=== PATIENT | female | born 1995 | race Caucasian/White ===

== ENCOUNTER 2016-05-11 10:35 | Emergency (ER) | payer BC, OTHER ==
[~2016-05-11] VITALS: Ht 157.5 cm; Wt 40.9 kg
[~2016-05-11 10:35] MED LIST: BACTRIM DS 8001 TAB PO; BENTYL 20MG20 MG/TAB PO; CEFTIN500 MG PO; CIPRO 500MG TA500 MG PO; DEPO-PROVER150 MG/M1 IM; EFFEXOR XR37.5 MG/CA PO; KLONOPIN 0.5MG0.5 MG PO; LEXAPRO 10MG10 MG PO; LORTAB 5/500 501 TAB PO; NORCO 325 MG-51 TAB PO; PREDNISONE20 MG PO; PYRIDIUM200 M1 PO; TUSS PO; ULTRAM 50MG TAB50 MG PO; VENTOLIN0.09 MG IH; ZOFRAN 4MG T4 MG/TAB PO; ZOFRAN ODT4 MG PO; ZOVIRAX 200MG200 MG PO
[2016-05-11 10:40] VITALS: TEMP 98.9
[2016-05-11] MEDS ORDERED: PAMELOR 25MG25 MG PO (11:06)
[2016-05-11 11:55] LABS: BASO % 0.6 % (0.0-2.0); EOS # 0.1 (0.0-0.7); EOS % 1.3 % (0-4.0); GRAN % 61.6 % (42.2-75.2); HEMATOCRIT 39.9 % (37.0-47.0); HEMOGLOBIN 13.7 g/dl (12.5-16.0); LYMPH % 31.1 % (20.0-51.0); MEAN CELL VOLUME 85 fl (80.0-100.0); MEAN CORPUSCULAR HEMOGLOBIN 29 pg (27.0-31.0); MEAN CORPUSCULAR HGB CONC 34 g/dl (33.0-37.0); MEAN PLATELET VOLUME 8.9 fl (7.4-10.4); MONO # 0.3 (0.1-0.6); MONO % 5.2 % (1.7-9.3); PLATELET COUNT 293 K/mm3 (130-400); REDCELL DISTRIBUTION WIDTH-CV 12.4 % (11.5-14.5); WHITE BLOOD COUNT 6.4 K/mm3 (4.8-10.8)
[2016-05-11 12:05] LABS: ADJUSTED CALCIUM 9.1 mg/dL (8.4-10.2); ALBUMIN 4.8 gm/dL (3.5-5.0); BILIRUBIN,TOTAL 1.7 mg/dL (0.0-1.0); CALCIUM 9.7 mg/dL (8.4-10.2); CREATININE, serum 0.92 mg/dL (0.52-1.25); POTASSIUM 3.4 mmol/L (3.4-5.0); TOTAL PROTEIN 8.5 gm/dL (6.4-8.2)
[2016-05-11 12:14] LABS: PH 6 (5-8); URINE APPEARANCE Cloudy; URINE BACTERIA Rare /hpf; URINE BILIRUBIN Negative (NEGATIVE); URINE BLOOD Negative (NEGATIVE); URINE COLOR Yellow; URINE GLUCOSE Negative (NEGATIVE); URINE KETONE 1+ (NEGATIVE); URINE RBC 0-2 /hpf; URINE UROBILINOGEN Negative (NEGATIVE)
[2016-05-11 14:49] VITALS: BP 115/65; PULSE 105
== END 2016-05-11 14:50 | disposition home or self-care (01) ==
LOC: COL.ER 10:35
PROVIDERS: Family Medicine
DX: E86.9 Volume depletion, unspecified (principal); K52.9 Noninfective gastroenteritis and colitis, unspecified
CPT/HCPCS: J2405; J2550; J7030

== ENCOUNTER → 2016-06-03 | Outpatient (CLI) | payer BC, OTHER ==
[~2016-06-03] MED LIST changes: +DESYREL 50MG50 MG PO; +NEURONTIN300 MG/CAP PO; +PAMELOR 25MG25 MG PO; +PERIACTIN 4MG TA4 MG PO; +SEROQUEL 2525 MG/TAB PO; +SEROQUEL XR150 MG PO
== END ==
LOC: BHSO 13:55
DX: F41.1 Generalized anxiety disorder (principal)

== ENCOUNTER 2016-07-04 02:15 | Emergency (ER) | payer BC, OTHER ==
[~2016-07-04] VITALS: Ht 157.5 cm; Wt 44.5 kg
[~2016-07-04 02:15] MED LIST changes: -DESYREL 50MG50 MG PO; -NEURONTIN300 MG/CAP PO; -PERIACTIN 4MG TA4 MG PO; -SEROQUEL 2525 MG/TAB PO; -SEROQUEL XR150 MG PO
[2016-07-04 02:20] VITALS: TEMP 97.8
[2016-07-04] MEDS ORDERED: NORCO 325 MG-51 TAB PO (02:55)
[2016-07-04 03:01] VITALS: BP 128/80; PULSE 88
== END 2016-07-04 03:13 | disposition home or self-care (01) ==
LOC: COL.ER 02:15
DX: T65.891A Toxic effect of other specified substances, accidental (unintentional), initial encounter (principal); T23.562A Corrosion of first degree of back of left hand, initial encounter; Y93.E9 Activity, other interior property and clothing maintenance; Y92.009 Unspecified place in unspecified non-institutional (private) residence as the place of occurrence of the external cause

== ENCOUNTER → 2016-07-08 | Outpatient (CLI) | payer BC, OTHER ==
[~2016-07-08] MED LIST changes: +DESYREL 50MG50 MG PO; +NEURONTIN300 MG/CAP PO; +PERIACTIN 4MG TA4 MG PO; +SEROQUEL 2525 MG/TAB PO; +SEROQUEL XR150 MG PO
== END ==
LOC: BHSO 10:06
DX: F41.1 Generalized anxiety disorder (principal)

== ENCOUNTER → 2016-07-09 | Outpatient (CLI) | payer BC, OTHER | LOC: BHSO 10:51 | DX: F41.0 Panic disorder [episodic paroxysmal anxiety] (principal) ==

== ENCOUNTER 2016-11-23 11:14 | Emergency (ER) | payer BC, OTHER ==
[~2016-11-23] VITALS: Ht 157.5 cm; Wt 51.7 kg
[~2016-11-23 11:14] MED LIST changes: -DESYREL 50MG50 MG PO; -NEURONTIN300 MG/CAP PO; -PERIACTIN 4MG TA4 MG PO; -SEROQUEL 2525 MG/TAB PO; -SEROQUEL XR150 MG PO
[2016-11-23 11:20] VITALS: BP 120/89; PULSE 119; TEMP 98.5
[2016-11-23] MEDS ORDERED: DESYREL 50MG50 MG PO (11:29)
[2016-11-23] MEDS ORDERED: SEROQUEL 2525 MG/TAB PO (11:29)
[2016-11-23] MEDS ORDERED: SEROQUEL XR150 MG PO (11:29)
[2016-11-23] MEDS ORDERED: PERIACTIN 4MG TA4 MG PO (11:30)
[2016-11-23] MEDS ORDERED: NEURONTIN300 MG/CAP PO (11:30)
[2016-11-23 13:06] LABS: PH 5 (5-8); SQUAMOUS EPITHELIAL 20-50 /hpf; URINE APPEARANCE Cloudy; URINE BACTERIA Rare /hpf; URINE BILIRUBIN Negative (NEGATIVE); URINE BLOOD Negative (NEGATIVE); URINE COLOR Yellow; URINE GLUCOSE Negative (NEGATIVE); URINE KETONE Negative (NEGATIVE); URINE RBC 0-2 /hpf; URINE UROBILINOGEN Negative (NEGATIVE)
== END 2016-11-23 13:37 | disposition home or self-care (01) ==
LOC: COL.ER 11:14
PROVIDERS: Nurse Practitioner
DX: R07.9 Chest pain, unspecified (principal); R11.2 Nausea with vomiting, unspecified; R10.814 Left lower quadrant abdominal tenderness; F31.9 Bipolar disorder, unspecified; F17.210 Nicotine dependence, cigarettes, uncomplicated

== ENCOUNTER 2017-06-22 10:28 | Emergency (ER) | payer BC ==
[~2017-06-22] VITALS: Ht 157.5 cm; Wt 50.9 kg
[~2017-06-22 10:28] MED LIST changes: +DESYREL 50MG50 MG PO; +NEURONTIN300 MG/CAP PO; +PERIACTIN 4MG TA4 MG PO; +SEROQUEL 2525 MG/TAB PO; +SEROQUEL XR150 MG PO
[2017-06-22 10:40] VITALS: TEMP 98.7
[2017-06-22 11:29] LABS: BASO # 0.1 (0.0-0.2); BASO % 0.4 % (0.0-2.0); EOS # 0.1 (0.0-0.7); EOS % 0.7 % (0-4.0); GRAN # 10.2 (1.4-6.5); GRAN % 81.2 % (42.2-75.2); HEMATOCRIT 39.2 % (37.0-47.0); HEMOGLOBIN 13.9 g/dl (12.5-16.0); LYMPH # 1.7 (1.2-3.4); LYMPH % 13.5 % (20.0-51.0); MEAN CELL VOLUME 83 fl (80.0-100.0); MEAN CORPUSCULAR HEMOGLOBIN 30 pg (27.0-31.0); MEAN CORPUSCULAR HGB CONC 36 g/dl (33.0-37.0); MEAN PLATELET VOLUME 9.2 fl (7.4-10.4); MONO # 0.5 (0.1-0.6); MONO % 3.8 % (1.7-9.3); PLATELET COUNT 315 K/mm3 (130-400); REDCELL DISTRIBUTION WIDTH-CV 12.4 % (11.5-14.5)
[2017-06-22 11:36] LABS: ALBUMIN 4.6 gm/dL (3.5-5.0); BILIRUBIN,TOTAL 0.8 mg/dL (0.0-1.0); CALCIUM 10.1 mg/dL (8.4-10.2); CREATININE, serum 0.63 mg/dL (0.52-1.25); POTASSIUM 3.8 mmol/L (3.4-5.0); TOTAL PROTEIN 7.9 gm/dL (6.4-8.2)
[2017-06-22 11:49] LABS: COLLECTION METHOD CLEAN CATCH
[2017-06-22 12:07] LABS: MUCOUS Present /lpf; PH 5 (5-8); URINE APPEARANCE Cloudy; URINE BACTERIA None Seen /hpf; URINE BILIRUBIN Negative (NEGATIVE); URINE BLOOD Negative (NEGATIVE); URINE COLOR Yellow; URINE GLUCOSE Negative (NEGATIVE); URINE KETONE 2+ (NEGATIVE); URINE LEUKOCYTE ESTERASE Negative (NEGATIVE); URINE NITRATE Negative (NEGATIVE); URINE PROTEIN(semi-quant) 1+ (NEGATIVE); URINE UROBILINOGEN Negative (NEGATIVE)
[2017-06-22] MEDS ORDERED: PHENERGAN 25 TA25 MG PO (13:22)
[2017-06-22 13:43] VITALS: BP 109/77; PULSE 76
[2017-06-22] MEDS ORDERED: MACROBID 1100 MG/CAP PO (14:08)
== END 2017-06-22 13:43 | disposition home or self-care (01) ==
LOC: COL.ER 10:28
PROVIDERS: Emergency Medicine
DX: O23.41 Unspecified infection of urinary tract in pregnancy, first trimester (principal); O21.9 Vomiting of pregnancy, unspecified; O99.341 Other mental disorders complicating pregnancy, first trimester; Z3A.08 8 weeks gestation of pregnancy; Z87.891 Personal history of nicotine dependence; Z88.8 Allergy status to other drugs, medicaments and biological substances; Z98.890 Other specified postprocedural states
CPT/HCPCS: J2550; J7030

== ENCOUNTER 2017-07-08 14:06 | Outpatient (CLI) | payer BC ==
[~2017-07-08] VITALS: Ht 157.5 cm; Wt 48.5 kg
[~2017-07-08 14:06] MED LIST changes: +MACROBID 1100 MG/CAP PO; +PHENERGAN 25 TA25 MG PO
[2017-07-08 14:53] LABS: MEAN CELL VOLUME 84 fl (80.0-100.0); MEAN CORPUSCULAR HEMOGLOBIN 30 pg (27.0-31.0); MEAN CORPUSCULAR HGB CONC 35 g/dl (33.0-37.0); MEAN PLATELET VOLUME 8.8 fl (7.4-10.4); PLATELET COUNT 302 K/mm3 (130-400); REDCELL DISTRIBUTION WIDTH-CV 12.5 % (11.5-14.5)
[2017-07-08 14:54] LABS: HEMATOCRIT 36.9 % (37.0-47.0)
[2017-07-08 14:58] LABS: ALBUMIN 4.4 gm/dL (3.5-5.0); BILIRUBIN,TOTAL 0.4 mg/dL (0.0-1.0); CALCIUM 9.2 mg/dL (8.4-10.2); CREATININE, serum 0.55 mg/dL (0.52-1.25); POTASSIUM 3.6 mmol/L (3.4-5.0); TOTAL PROTEIN 7.8 gm/dL (6.4-8.2)
[2017-07-08 15:14] VITALS: BP 114/79; PULSE 89; TEMP 98.7
[2017-07-08] MEDS ORDERED: PRENATAL PO (15:34)
== END 2017-07-08 19:47 | disposition home or self-care (01) ==
LOC: EUO 14:06
PROVIDERS: Obstetrics & Gynecology
DX: O21.0 Mild hyperemesis gravidarum (principal); Z3A.12 12 weeks gestation of pregnancy
CPT/HCPCS: J2405; J7030

== ENCOUNTER 2017-07-26 08:28 | Emergency (ER) | payer BC ==
[~2017-07-26] VITALS: Ht 154.9 cm; Wt 52.7 kg
[~2017-07-26 08:28] MED LIST changes: +PRENATAL PO
[2017-07-26 08:34] VITALS: TEMP 98.8
[2017-07-26 10:09] VITALS: BP 117/81; PULSE 94
[2017-07-26] MEDS ORDERED: AMOXICILLIN875 MG PO (10:13)
== END 2017-07-26 10:55 | disposition home or self-care (01) ==
LOC: COL.ER 08:28
DX: O98.512 Other viral diseases complicating pregnancy, second trimester (principal); Z3A.15 15 weeks gestation of pregnancy; Z87.891 Personal history of nicotine dependence

== ENCOUNTER 2017-09-05 14:42 | Outpatient (CLI) | payer BC ==
[~2017-09-05] VITALS: Ht 154.9 cm; Wt 54.5 kg
[~2017-09-05 14:42] MED LIST changes: +AMOXICILLIN875 MG PO
[2017-09-05 15:54] LABS: ALBUMIN 3.5 gm/dL (3.5-5.0); BILIRUBIN,TOTAL 0.4 mg/dL (0.0-1.0); CALCIUM 8.9 mg/dL (8.4-10.2); CREATININE, serum 0.53 mg/dL (0.52-1.25); POTASSIUM 3.5 mmol/L (3.4-5.0); TOTAL PROTEIN 7.1 gm/dL (6.4-8.2)
[2017-09-05] MEDS ORDERED: PHENERGAN25 MG RC (17:14)
[2017-09-05 17:20] VITALS: BP 109/64; PULSE 84; TEMP 98
== END 2017-09-05 19:32 | disposition home or self-care (01) ==
LOC: EUO 14:42
PROVIDERS: Obstetrics & Gynecology
DX: O21.0 Mild hyperemesis gravidarum (principal); Z3A.20 20 weeks gestation of pregnancy
CPT/HCPCS: J2405; J7030

== ENCOUNTER 2017-11-02 19:40 | Outpatient (CLI) | payer BC, MEDICAID ==
[~2017-11-02] VITALS: Ht 157.5 cm; Wt 56.4 kg
[~2017-11-02 19:40] MED LIST changes: +PHENERGAN25 MG RC
[2017-11-02] MEDS ORDERED: LEXAPRO 10MG10 MG PO (20:04)
[2017-11-02 20:05] VITALS: BP 100/63; PULSE 86; TEMP 98.6
[2017-11-02] MEDS ORDERED: PROFERRIN ES12 MG PO (20:05)
[2017-11-02 20:15] VITALS: BP 100/63; PULSE 86; TEMP 98.6
== END 2017-11-02 20:45 | disposition home or self-care (01) ==
LOC: LDRO 19:40
DX: O99.89 Other specified diseases and conditions complicating pregnancy, childbirth and the puerperium (principal); M54.9 Dorsalgia, unspecified; Z3A.29 29 weeks gestation of pregnancy

== ENCOUNTER 2017-12-03 15:09 | Outpatient (CLI) | payer BC, MEDICAID ==
[~2017-12-03] VITALS: Ht 157.5 cm; Wt 56.4 kg
[~2017-12-03 15:09] MED LIST changes: +PROFERRIN ES12 MG PO
[2017-12-03 15:31] VITALS: BP 101/66; PULSE 104; TEMP 98.4
[2017-12-03] MEDS ORDERED: LEXAPRO20 MG PO (15:40)
[2017-12-03] MEDS ORDERED: KLONOPIN WAFER0.5 MG PO (15:41)
[2017-12-03 16:33] LABS: COLLECTION METHOD CLEAN CATCH
[2017-12-03 16:38] LABS: BASO % 0.2 % (0.0-2.0); EOS # 0.1 (0.0-0.7); EOS % 0.9 % (0-4.0); GRAN # 6.9 (1.4-6.5); LYMPH # 2.4 (1.2-3.4); LYMPH % 23.8 % (20.0-51.0); MEAN CELL VOLUME 82 fl (80.0-100.0); MEAN CORPUSCULAR HGB CONC 34 g/dl (33.0-37.0); MEAN PLATELET VOLUME 8.8 fl (7.4-10.4); MONO # 0.7 (0.1-0.6); MONO % 6.6 % (1.7-9.3); PLATELET COUNT 264 K/mm3 (130-400); RED BLOOD COUNT 3.46 M/mm3 (4.10-5.30); REDCELL DISTRIBUTION WIDTH-CV 13.4 % (11.5-14.5)
[2017-12-03 16:40] LABS: PH 8 (5-8); SQUAMOUS EPITHELIAL 0-2 /hpf; URINE APPEARANCE Clear; URINE BACTERIA None Seen /hpf; URINE BILIRUBIN Negative (NEGATIVE); URINE BLOOD Negative (NEGATIVE); URINE COLOR Straw; URINE GLUCOSE Negative (NEGATIVE); URINE KETONE Negative (NEGATIVE); URINE LEUKOCYTE ESTERASE Negative (NEGATIVE); URINE NITRATE Negative (NEGATIVE); URINE PROTEIN(semi-quant) Negative (NEGATIVE); URINE RBC 0-2 /hpf; URINE UROBILINOGEN Negative (NEGATIVE); URINE WBC 0-2 /hpf
[2017-12-03 16:47] LABS: HEMATOCRIT 28.5 % (37.0-47.0); HEMOGLOBIN 9.8 g/dl (12.5-16.0); MEAN CORPUSCULAR HEMOGLOBIN 28 pg (27.0-31.0)
[2017-12-03 16:48] LABS: ALBUMIN 3.2 gm/dL (3.5-5.0); BILIRUBIN,TOTAL 0.2 mg/dL (0.0-1.0); CALCIUM 8.5 mg/dL (8.4-10.2); CREATININE, serum 0.49 mg/dL (0.52-1.25); POTASSIUM 3.7 mmol/L (3.4-5.0); TOTAL PROTEIN 6.4 gm/dL (6.4-8.2)
[2017-12-03 17:30] VITALS: BP 125/83; PULSE 76
[2017-12-03 18:10] VITALS: BP 115/66; PULSE 65
[2017-12-03 18:30] VITALS: BP 109/75; PULSE 70
== END 2017-12-03 20:20 | disposition home or self-care (01) ==
LOC: LDRO 15:09
PROVIDERS: Obstetrics & Gynecology
DX: O26.893 Other specified pregnancy related conditions, third trimester (principal); R19.7 Diarrhea, unspecified; M54.5 Low back pain; Z3A.33 33 weeks gestation of pregnancy
CPT/HCPCS: J7120

== ENCOUNTER 2017-12-27 14:18 | Outpatient (CLI) | payer BC, MEDICAID ==
[~2017-12-27] VITALS: Ht 157.5 cm; Wt 60.9 kg
[~2017-12-27 14:18] MED LIST changes: +KLONOPIN WAFER0.5 MG PO; +LEXAPRO20 MG PO
[2017-12-27 14:32] VITALS: BP 99/63; PULSE 100; TEMP 98.4
[2017-12-27] MEDS ORDERED: BUSPAR5 MG PO (14:36)
[2017-12-27] MEDS ORDERED: TUMS EXTRA STR750 MG PO (14:37)
== END 2017-12-27 15:05 | disposition home or self-care (01) ==
LOC: LDRO 14:18
DX: O99.89 Other specified diseases and conditions complicating pregnancy, childbirth and the puerperium (principal); M54.5 Low back pain; R10.9 Unspecified abdominal pain; Z3A.37 37 weeks gestation of pregnancy

== ENCOUNTER → 2018-01-05 | Outpatient (CLI) | payer BC, MEDICAID ==
[~2018-01-05] VITALS: Ht 157.5 cm; Wt 60.5 kg
[~2018-01-05] MED LIST changes: +BUSPAR5 MG PO; +TUMS EXTRA STR750 MG PO
[2018-01-05 16:00] VITALS: BP 120/82; PULSE 89; TEMP 98.3
[2018-01-05 16:22] VITALS: BP 120/83; PULSE 89; TEMP 98.3
[2018-01-05 17:07] LABS: COLLECTION METHOD CLEAN CATCH
[2018-01-05 17:15] LABS: BASO % 0.2 % (0.0-2.0); EOS # 0.1 (0.0-0.7); EOS % 0.7 % (0-4.0); GRAN # 9.9 (1.4-6.5); GRAN % 75.5 % (42.2-75.2); HEMOGLOBIN 10.7 g/dl (12.5-16.0); LYMPH # 2.2 (1.2-3.4); LYMPH % 16.8 % (20.0-51.0); MEAN CELL VOLUME 84 fl (80.0-100.0); MEAN CORPUSCULAR HEMOGLOBIN 28 pg (27.0-31.0); MEAN CORPUSCULAR HGB CONC 34 g/dl (33.0-37.0); MEAN PLATELET VOLUME 9.2 fl (7.4-10.4); MONO # 0.8 (0.1-0.6); MONO % 6.1 % (1.7-9.3); PLATELET COUNT 269 K/mm3 (130-400); RED BLOOD COUNT 3.78 M/mm3 (4.10-5.30)
[2018-01-05 17:17] LABS: MUCOUS Present /lpf; PH 7 (5-8); SQUAMOUS EPITHELIAL 0-2 /hpf; URINE APPEARANCE Clear; URINE BACTERIA Rare /hpf; URINE BILIRUBIN Negative (NEGATIVE); URINE BLOOD Negative (NEGATIVE); URINE COLOR Yellow; URINE GLUCOSE Negative (NEGATIVE); URINE KETONE 1+ (NEGATIVE); URINE LEUKOCYTE ESTERASE Negative (NEGATIVE); URINE NITRATE Negative (NEGATIVE); URINE PROTEIN(semi-quant) Negative (NEGATIVE); URINE RBC 0-2 /hpf; URINE UROBILINOGEN Negative (NEGATIVE); URINE WBC 0-2 /hpf
[2018-01-05 17:19] LABS: HEMATOCRIT 31.6 % (37.0-47.0)
[2018-01-05 17:21] LABS: ALBUMIN 3.3 gm/dL (3.5-5.0); BILIRUBIN,TOTAL 0.3 mg/dL (0.0-1.0); CALCIUM 8.4 mg/dL (8.4-10.2); CREATININE, serum 0.49 mg/dL (0.52-1.25); POTASSIUM 3.6 mmol/L (3.4-5.0); TOTAL PROTEIN 6.6 gm/dL (6.4-8.2)
== END ==
LOC: LDRO 15:45
PROVIDERS: Obstetrics & Gynecology
DX: O99.89 Other specified diseases and conditions complicating pregnancy, childbirth and the puerperium (principal); M54.9 Dorsalgia, unspecified; Z3A.38 38 weeks gestation of pregnancy

== ENCOUNTER 2022-01-16 03:42 | Emergency (ER) | payer BC ==
[~2022-01-16] VITALS: Ht 160 cm; Wt 52.3 kg
[~2022-01-16 03:42] MED LIST changes: +MOTRIN 600600 MG/TAB PO; +PERCOCET 325 MG1 TA2 PO; +TYLENOL 500MG500 MG PO
[2022-01-16 03:59] VITALS: TEMP 98.1
[2022-01-16] MEDS ORDERED: MOTRIN 800800 MG/TAB PO (05:47)
[2022-01-16 05:58] VITALS: BP 119/84; PULSE 95
== END 2022-01-16 06:01 | disposition home or self-care (01) ==
LOC: COL.ER 03:42
DX: G56.21 Lesion of ulnar nerve, right upper limb (principal); F17.290 Nicotine dependence, other tobacco product, uncomplicated; Z28.310 Unvaccinated for COVID-19

== ENCOUNTER 2023-04-15 11:29 | Emergency (ER) | payer OTHER ==
[~2023-04-15] VITALS: Ht 157.5 cm; Wt 44.1 kg
[~2023-04-15 11:29] MED LIST changes: +MOTRIN 800800 MG/TAB PO; +REGLAN 5MG T5 MG/TAB PO
[2023-04-15 11:44] VITALS: TEMP 98.4
[2023-04-15 13:34] LABS: HEMATOCRIT 40.8 % (37.0-47.0); HEMOGLOBIN 13.8 g/dl (12.5-16.0); MEAN CELL VOLUME 86 fl (80.0-100.0); MEAN CORPUSCULAR HEMOGLOBIN 29 pg (27-31); MEAN CORPUSCULAR HGB CONC 34 g/dl (33.0-37.0); MEAN PLATELET VOLUME 9.7 fl (7.4-10.4); PLATELET COUNT 301 K/mm3 (130-400); RED BLOOD COUNT 4.77 M/mm3 (4.10-5.30)
[2023-04-15 13:48] LABS: ALBUMIN 4.4 gm/dL (3.5-5.0); BILIRUBIN,TOTAL 1.4 mg/dL (0.2-1.2); CALCIUM 9.5 mg/dL (8.4-10.2); CREATININE, serum 0.84 mg/dL (0.57-1.11); POTASSIUM 3.9 mmol/L (3.5-4.5)
[2023-04-15 14:11] LABS: COLLECTION METHOD CLEAN CATCH
[2023-04-15 14:20] LABS: URINE APPEARANCE Clear (CLEAR/HAZY); URINE BLOOD TRACE-INTACT (NEGATIVE); URINE COLOR Yellow (YELLOW); URINE GLUCOSE Negative (NEGATIVE); URINE KETONE 4+ (NEGATIVE); URINE NITRATE Negative (NEGATIVE); URINE PROTEIN(semi-quant) TRACE (NEGATIVE); URINE UROBILINOGEN 0.2 E.U/dL (0.2-1.0)
[2023-04-15 14:22] LABS: MUCOUS Present (NOT PRESENT)
[2023-04-15 14:36] LABS: BAND 5 % (0-10); LYMPHOCYTE 1 % (20.0-51.0); NEUTROPHILS 92 % (42.0-75.2); PLATELET ESTIMATE NORMAL (NORMAL)
[2023-04-15] MEDS ORDERED: NORCO 325 MG-51 TAB PO (15:37)
[2023-04-15] MEDS ORDERED: PHENERGAN12.5 MG/SU RC (15:37)
[2023-04-15 15:52] VITALS: BP 107/59; PULSE 94
== END 2023-04-15 15:53 | disposition home or self-care (01) ==
LOC: COL.ER 11:29
PROVIDERS: Physician Assistant
DX: R10.31 Right lower quadrant pain (principal); R10.11 Right upper quadrant pain; R11.2 Nausea with vomiting, unspecified; D72.829 Elevated white blood cell count, unspecified; Z87.891 Personal history of nicotine dependence
CPT/HCPCS: J1885; J2405; J7030; Q9967

== ENCOUNTER 2023-07-28 16:14 | Emergency (ER) | payer OTHER ==
[~2023-07-28] VITALS: Ht 157.5 cm; Wt 38.2 kg
[~2023-07-28 16:14] MED LIST changes: +PHENERGAN12.5 MG/SU RC
[2023-07-28 16:19] VITALS: BP 145/93; PULSE 106; TEMP 98.1
[2023-07-28] MEDS ORDERED: NS 1,000 ML IV ONE (17:15)
[2023-07-28 17:17] LABS: COLLECTION METHOD CLEAN CATCH
[2023-07-28 17:21] LABS: BASO # 0.1 K/mm3 (0.0-0.2); BASO % 0.4 % (0.0-2.0); EOS # 0.1 K/mm3 (0.0-0.7); EOS % 0.5 % (0.0-4.0); GRAN # 8.3 K/mm3 (1.4-6.5); GRAN % 68.3 % (42.2-75.2); HEMOGLOBIN 11.9 g/dl (12.5-16.0); LYMPH # 3.2 K/mm3 (1.2-3.4); LYMPH % 26.7 % (20.0-51.0); MEAN CELL VOLUME 86 fl (80.0-100.0); MEAN CORPUSCULAR HEMOGLOBIN 30 pg (27-31); MEAN CORPUSCULAR HGB CONC 35 g/dl (33.0-37.0); MEAN PLATELET VOLUME 8.9 fl (7.4-10.4); MONO # 0.5 K/mm3 (0.1-0.6); MONO % 3.7 % (1.7-9.3); PLATELET COUNT 273 K/mm3 (130-400); RED BLOOD COUNT 4.01 M/mm3 (4.10-5.30)
[2023-07-28 17:30] LABS: HEMATOCRIT 34.5 % (37.0-47.0); URINE APPEARANCE CLEAR (CLEAR/HAZY); URINE BLOOD NEGATIVE (NEGATIVE); URINE COLOR YELLOW (YELLOW); URINE GLUCOSE NEGATIVE (NEGATIVE); URINE KETONE TRACE (NEGATIVE); URINE NITRATE NEGATIVE (NEGATIVE); URINE PROTEIN(semi-quant) NEGATIVE (NEGATIVE); URINE UROBILINOGEN 0.2 E.U/dL (0.2-1.0)
[2023-07-28 17:43] LABS: ALBUMIN 3.8 gm/dL (3.5-5.0); BILIRUBIN,TOTAL 0.4 mg/dL (0.2-1.2); CALCIUM 9.7 mg/dL (8.4-10.2); CREATININE, serum 0.82 mg/dL (0.57-1.11); POTASSIUM 3.3 mmol/L (3.5-4.5); TOTAL PROTEIN 7.2 gm/dL (6.2-8.1)
== END 2023-07-28 19:06 | disposition home or self-care (01) ==
LOC: COL.ER 16:14
PROVIDERS: Physician Assistant
DX: K31.84 Gastroparesis (principal); Z79.899 Other long term (current) drug therapy
CPT/HCPCS: J7030

== ENCOUNTER 2023-12-09 20:17 | Emergency (ER) | payer OTHER ==
[~2023-12-09] VITALS: Ht 157.5 cm; Wt 42.7 kg
[2023-12-09 20:27] VITALS: TEMP 98.5
[2023-12-09] MEDS ORDERED: diphenhydrAMINE 50 MG/ML 1 ML VIAL IV ONE (21:15)
[2023-12-09] MEDS ORDERED: NS 1,000 ML IV ONE (21:15)
[2023-12-09 21:40] LABS: BASO % 0.4 % (0.0-2.0); EOS # 0.1 K/mm3 (0.0-0.7); EOS % 1.3 % (0.0-4.0); GRAN # 6.5 K/mm3 (1.4-6.5); GRAN % 62.3 % (42.2-75.2); HEMOGLOBIN 11.6 g/dl (12.5-16.0); LYMPH # 3.1 K/mm3 (1.2-3.4); LYMPH % 29.6 % (20.0-51.0); MEAN CELL VOLUME 88 fl (80.0-100.0); MEAN CORPUSCULAR HEMOGLOBIN 30 pg (27-31); MEAN CORPUSCULAR HGB CONC 34 g/dl (33.0-37.0); MEAN PLATELET VOLUME 8.9 fl (7.4-10.4); MONO # 0.6 K/mm3 (0.1-0.6); MONO % 6.2 % (1.7-9.3); PLATELET COUNT 255 K/mm3 (130-400); RED BLOOD COUNT 3.89 M/mm3 (4.10-5.30); REDCELL DISTRIBUTION WIDTH-CV 12.8 % (11.5-14.5)
[2023-12-09 21:42] LABS: HEMATOCRIT 34.3 % (37.0-47.0)
[2023-12-09 21:49] LABS: ALBUMIN 3.8 g/dL (3.5-5.0); BILIRUBIN,TOTAL 0.3 mg/dL (0.2-1.2); CREATININE, serum 0.86 mg/dL (0.57-1.11); POTASSIUM 3.7 mEq/L (3.5-4.5); TOTAL PROTEIN 6.9 g/dl (6.2-8.1)
[2023-12-09] MEDS ORDERED: DULCOLAX S10 MG/SUPP RC (22:17)
[2023-12-09 22:25] VITALS: BP 121/87; PULSE 87
== END 2023-12-09 22:27 | disposition home or self-care (01) ==
LOC: COL.ER 20:17
PROVIDERS: Emergency Medicine
DX: K59.00 Constipation, unspecified (principal); K31.84 Gastroparesis; Z87.891 Personal history of nicotine dependence
CPT/HCPCS: J7030

== ENCOUNTER 2024-02-25 10:14 | Emergency (ER) | payer OTHER ==
[~2024-02-25] VITALS: Ht 157.5 cm; Wt 45.5 kg
[~2024-02-25 10:14] MED LIST changes: +DULCOLAX S10 MG/SUPP RC
[2024-02-25 10:23] VITALS: BP 130/85; PULSE 95; TEMP 98.3
[2024-02-25 11:21] LABS: BASO # 0.1 K/mm3 (0.0-0.2); BASO % 0.5 % (0.0-2.0); EOS # 0.1 K/mm3 (0.0-0.7); EOS % 0.6 % (0.0-4.0); GRAN % 63.2 % (42.2-75.2); HEMATOCRIT 38.1 % (37.0-47.0); HEMOGLOBIN 13.3 g/dl (12.5-16.0); LYMPH # 2.8 K/mm3 (1.2-3.4); LYMPH % 29.1 % (20.0-51.0); MEAN CELL VOLUME 87 fl (80.0-100.0); MEAN CORPUSCULAR HEMOGLOBIN 31 pg (27-31); MEAN CORPUSCULAR HGB CONC 35 g/dl (33.0-37.0); MEAN PLATELET VOLUME 8.3 fl (7.4-10.4); MONO # 0.6 K/mm3 (0.1-0.6); MONO % 6.3 % (1.7-9.3); PLATELET COUNT 274 K/mm3 (130-400); RED BLOOD COUNT 4.36 M/mm3 (4.10-5.30); REDCELL DISTRIBUTION WIDTH-CV 11.9 % (11.5-14.5)
[2024-02-25 11:38] LABS: ALBUMIN 4.1 g/dL (3.5-5.0); BILIRUBIN,TOTAL 0.7 mg/dL (0.2-1.2); CALCIUM 9.7 mg/dL (8.4-10.2); CREATININE, serum 0.9 mg/dL (0.57-1.11); POTASSIUM 4.1 mEq/L (3.5-4.5); TOTAL PROTEIN 7.5 g/dl (6.2-8.1)
[2024-02-25 11:58] LABS: PROLACTIN 14.7 ng/mL (5.18-26.53)
== END 2024-02-25 12:35 | disposition home or self-care (01) ==
LOC: COL.ER 10:14
PROVIDERS: Nurse Practitioner
DX: R55 Syncope and collapse (principal)